=== PATIENT | male | born 1995 | race Caucasian/White ===

== ENCOUNTER 2018-06-09 16:34 | Emergency (ER) | payer OTHER ==
[2018-06-09 16:52] VITALS: BP 126/66
[2018-06-09] MEDS ORDERED: LET GEL TOPICAL 1 EA SYR TP ONE (17:07)
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
== END 2018-06-09 18:55 | disposition home or self-care (01) ==
PROC: 0HQ1XZZ Repair Face Skin, External Approach (ICD-10-PCS; principal; 2018-06-09)
DX: S01.81XA Laceration without foreign body of other part of head, initial encounter (principal); V19.3XXA Pedal cyclist (driver) (passenger) injured in unspecified nontraffic accident, initial encounter; Y93.55 Activity, bike riding; R68.84 Jaw pain; Y92.482 Bike path as the place of occurrence of the external cause